=== PATIENT | male | born 1995 | race African-American/Black ===

== ENCOUNTER 2019-07-02 23:32 | Emergency (ER) | payer SELFPAY ==
[~2019-07-02] VITALS: Ht 175.3 cm; Wt 77.3 kg
[2019-07-02 23:37] VITALS: Ht 175.3 cm; Wt 77.3 kg
[2019-07-03] MEDS ORDERED: NAPROSYN500 MG PO (00:11)
[2019-07-03 00:30] VITALS: BP 133/65
== END 2019-07-03 00:30 | disposition home or self-care (01) ==
LOC: D.ER 23:32
DX: S93.402A Sprain of unspecified ligament of left ankle, initial encounter (principal); X50.1XXA Overexertion from prolonged static or awkward postures, initial encounter; Y93.89 Activity, other specified; Y92.9 Unspecified place or not applicable; S90.02XA Contusion of left ankle, initial encounter